=== PATIENT | female | born 1980 | race Caucasian/White ===

== ENCOUNTER → 2016-11-05 | Outpatient (CLI) | payer BC, OTHER ==
[~2016-11-05] MED LIST: ALPR0.25 PO; PHEN-556 PO
[2016-11-05 11:43] LABS: AUTOMATED NEUTROPHIL # 2.4 TH/MM3 (1.8-7.7); BASOPHIL % 0.5 % (0.0-2.0); EOSINOPHIL # 0.1 TH/MM3 (0-0.4); EOSINOPHIL % 1.1 % (0.0-4.0); HEMATOCRIT 40.8 % (35.0-46.0); HEMO FLAGS DIFF FINAL; LYMPHOCYTE # 1.9 TH/MM3 (1.0-4.8); MEAN CELL VOLUME 98.2 FL (80.0-100.0); MEAN CORPUSCULAR HEMOGLOBIN 32.3 PG (27.0-34.0); MEAN CORPUSCULAR HGB CONC 32.9 % (32.0-36.0); MONO % 8.4 % (0.0-8.0); PLATELET COUNT 372 TH/MM3 (150-450); RED BLOOD COUNT 4.16 MIL/MM3 (4.00-5.30); RED CELL DISTRIBUTION WIDTH 14.2 % (11.6-17.2); WHITE BLOOD COUNT 4.9 TH/MM3 (4.0-11.0)
[2016-11-05 12:10] LABS: BLOOD, URINE NEG (NEG); GLUCOSE,URINE NEG (NEG); KETONE, URINE NEG (NEG); NITRITE,URINE NEG (NEG); URINE COLOR LIGHT-YELLOW (YELLW/STRAW)
[2016-11-05 12:18] LABS: ANION GAP 8 MEQ/L (5-15); BICARBONATE 26.6 MEQ/L (21.0-32.0); BLOOD UREA NITROGEN 14 MG/DL (7-18); CHLORIDE 103 MEQ/L (98-107); GLOMERULAR FILTRATION RATE 90 ML/MIN (>89); GLUCOSE,FASTING 79 MG/DL (74-99); POTASSIUM 4.4 MEQ/L (3.5-5.1); SODIUM (NA) 138 MEQ/L (136-145)
[2016-11-05 12:27] LABS: BHCG SCREEN QUALITATIVE LESS THAN 1 MIU/ML (0-5)
== END ==
LOC: CPRE 10:14
PROVIDERS: ATTEND Obstetrics & Gynecology
DX: Z01.812 Encounter for preprocedural laboratory examination (principal); N87.9 Dysplasia of cervix uteri, unspecified; R32 Unspecified urinary incontinence; R10.2 Pelvic and perineal pain
CPT/HCPCS: 36415; 80048; 81001; 84703; 85025; 86850; 86900; 86901

== ENCOUNTER 2016-11-07 06:56 | Observation (INO) | payer BC, OTHER ==
--- NOTE | 2016-11-05 17:16 | MH ---
cc: KANIKA KIRBY DATE OF ADMISSION 11/07/2016 DATE OF 1980 CHIEF COMPLAINT Known [place] 3 and desire to have definitive therapy rather than cone biopsy. HISTORY OF THE PRESENT ILLNESS The patient is a 36-year-old white female 2, para 2 status post successful NovaSure endometrial ablation who recently had a Pap smear showing atypical glandular cells and cannot rule out high-grade squamous intraepithelial lesion. We have talked about cone biopsy, further diagnosis and uterine preservation but she desires no more children. She has already had a history of NovaSure. She has significant stress urinary incontinence and wants a transobturator tape and she does not want to have to come in for repeated Pap smears. She prefers LAVH over a LEEP and we can address the prolapse at the same time. SOCIAL HISTORY She does not smoke or drink or use illicit drugs. MEDICATIONS Her only medication is Phentermine for weight loss and occasional alprazolam for sleep. OB HISTORY She had two vaginal deliveries. PAST SURGICAL HISTORY She has had a history of tubal ligation. No other surgeries. She is mildly overweight but desires to lose weight. PHYSICAL EXAMINATION GENERAL: She is a fair white female with no acute distress. LUNGS: Her lungs were clear to auscultation and percussion. HEART: Rate and rhythm are regular. BREASTS: Exam was deferred at this time ABDOMEN: Mildly enlarged. She has no hepatosplenomegaly. No costovertebral angle tenderness. No inguinal adenopathy. PELVIC: Perineum was estrogenized. Vault is fairly well elevated. Cervix is multiparous. Has a slight descent. Uterus is small, mobile anterior. Ovaries are not felt. She has a mild cystocele and positive Q-tip test. RECTAL: Guaiac was negative. EXTREMITIES: Unremarkable. IMPRESSION A 36-year-old who has completed her family with a history of endometrial ablation, now with a history of mild descent, stress incontinence and a high-grade lesion. PLAN The plan is to proceed with LAVH and bilateral salpingectomy and transobturator tape leaving the ovaries in place. Risks, benefits, expectations and alternatives have all been described in detail. She has signed consents and she is scheduled for morning. Kanika Kirby MD PPC/KK /4:48 PM /4:55 PM
[~2016-11-07] VITALS: Ht 162.6 cm; Wt 78.2 kg
[~2016-11-07 06:56] MED LIST changes: +BUPIVACAINE/EPINEPHRINE 0.25% 50 ML VIAL ONE; +ESTROGENS CONJUGATED VAG CREA 15 APPL/30 GM TUBE ONE; +SODIUM CHLORIDE 0.9% 20 ML VIAL ONE; +VASOPRESSIN INJ 20 UNITS/ML VIAL ONE
[2016-11-07] MEDS ORDERED: METOPROLOL TARTRATE 25 MG TAB PO PRN (07:30)
[2016-11-07] MEDS ORDERED: ceFAZolin 2 GM PREMIX 50 ML IV SCH (07:30)
[2016-11-07] MEDS ORDERED: SODIUM CHLORID 0.9% 500 ML IV PRN (07:30)
[2016-11-07] MEDS ORDERED: INSULIN HUMAN REGULAR 1,000 UNITS/10 ML VIAL SQ PRN (07:30)
[2016-11-07] MEDS ORDERED: POVIDONE IODINE 5% (ANTISEPSIS KIT) 4 APPLICATIONS EACH NARE PRN (07:30)
[2016-11-07] MEDS ORDERED: CHLORHEXIDINE GLUCONATE 2 % 1 PACK (2 CLOTHS) TOPICAL PRN (07:30)
[2016-11-07] MEDS ORDERED: LACTATED RINGER'S 1000 ML IV PRN (07:30)
[2016-11-07 07:37] VITALS: BP 106/70; PULSE 76; RESP 16; TEMP 98.9; O2SAT 100
[2016-11-07] MEDS ORDERED: MIDAZOLAM HCL 2 MG/2 ML VIAL ONE (08:37)
[2016-11-07] MEDS ORDERED: FAMOTIDINE 20 MG/2 ML VIAL ONE (08:37)
[2016-11-07] MEDS ORDERED: DEXAMETHASONE SOD PHOS 4 MG/ML VIAL ONE (08:37)
[2016-11-07] MEDS ORDERED: APREPITANT 40 MG CAP ONE (08:37)
[2016-11-07] MEDS ORDERED: ACETAMINOPHEN 1000 MG/100 ML VIAL IV ONE (08:58)
[2016-11-07] MEDS ORDERED: fentaNYL CITRATE 250 MCG/5 ML AMP ONE (08:58)
[2016-11-07] MEDS ORDERED: BUPIVACAINE/EPINEPHRINE 0.25% PF 30 ML VIAL INFIL ONE (10:05)
[2016-11-07] MEDS ORDERED: PROPOFOL 200 MG/20 ML AMP IV ONE (12:00)
[2016-11-07] MEDS ORDERED: KETOROLAC TROMETHAMINE 60 MG/2 ML (IM) VIAL IM ONE (12:00)
[2016-11-07] MEDS ORDERED: NEOSTIGMINE 3 MG/3 ML SYR IV ONE (12:00)
[2016-11-07] MEDS ORDERED: ONDANSETRON HCL 4 MG/2 ML VIAL IV PUSH ONE (12:00)
[2016-11-07] MEDS ORDERED: LACTATED RINGER'S 1000 ML INJ 1,000 ML IV ONE (12:00)
[2016-11-07] MEDS ORDERED: ESTROGENS CONJUGATED VAG CREA 15 APPL/30 GM TUBE VAGINAL ONE (12:00)
[2016-11-07] MEDS ORDERED: DO NOT ADM ANY ANTICOAGULANT DRUGS PRN (12:03)
--- NOTE | 2016-11-07 12:14 | MP ---
cc: KANIKA KIRBY DATE OF SURGERY November 07, 2016 PREOPERATIVE DIAGNOSES 1. CIN3 of the cervix. 2. History of menometrorrhagia status post ablation. 3. Stress urinary incontinence with urethrovesical angle descent and mild cystocele. POSTOPERATIVE DIAGNOSES 1. CIN3 of the cervix. 2. History of menometrorrhagia status post ablation. 3. Stress urinary incontinence with urethrovesical angle descent and mild cystocele. PROCEDURE Laparoscopic-assisted vaginal hysterectomy, bilateral salpingectomy, enterocele obliteration, transobturator tape placement and cystoscopy. Ovaries were normal and left in place. SURGEON MD Teri [employer] student 2nd year. FINDINGS Examination under anesthesia revealed a patulous cervix with moderate descent. The uterus itself was a little bit globular and mildly enlarged. Previous evaluations had revealed CIN3 in the office. Upon entering the peritoneal cavity, the liver edge and gallbladder were normal. I did not actually see the appendix. The uterus was globular, mildly enlarged. She had evidence of a previous bilateral tubal ligation. She has normal premenopausal ovaries. No evidence of endometriosis, no significant scarring, no evidence of cancer, no significant adhesions. The laparoscopic portion of the case went uneventfully, removing both tubes and the uterus from their attachments and then the vaginal portion was unremarkable as the uterus was pulled through the vagina with the tubes. An enterocele was obliterated and the vaginal vault was closed. Reevaluation from above confirmed hemostasis and then we were back to the perineum where we opened up the vaginal mucosa, placed a Solyx transobturator tape. Cystoscopy revealed normal flow from both ureteral orifices, no evidence iatrogenic injury or intrinsic pathology, closed that and did not pack but placed Premarin in the vault. Estimated blood loss was about 150 cc. Sponge, instrument and needle count were correct. She tolerated the procedure well and she went to the recovery room in stable condition. PROCEDURE The patient was identified in Holding as Yuli Key, her permit was reviewed with her. She was taken by stretcher to the operating room, placed under general endotracheal anesthesia in the dorsal lithotomy position. A time-out was performed with all in attending. She was prepped and draped in the usual sterile fashion. Examination under anesthesia was performed and the Jean Baptiste was placed in a sterile fashion. Attention was directed to the abdomen where a 5-mm incision was made in the umbilicus and then CO2 was instilled directly into the peritoneal cavity, about 2.5 liters and systematic evaluation was performed for reassuring placement. Then a 5-mm and 12-mm were placed in the right and left quadrants respectively. All incisions were infiltrated first with Marcaine with epi. Then the right round ligament was grasped with a harmonic scalpel, transected and the anterior leaf of the broad ligament taken off the lower uterine segment. On the right side the fimbriated portion of the tube was dissected away and then taken out through the left port. Then successive pedicles were taken down to the level of the uterosacrals. This was repeated on the left side; there were some mild adhesions that were first taken down and the entire tube was intact on the uterine specimen, so was not pulled out the left port. Once we were down to the uterosacrals on both sides, attention was directed to the perineum. The in the acorn tenaculum was removed and then the cervix was placed on tension. It was infiltrated with Marcaine with epi and then circumcised with the Bovie on cutting. The anterior and posterior cul-de-sacs were entered safely and then curved Ildefonso clamps were used to clamp, cut and suture ligate the uterosacrals which were tagged. Successive pedicles were clamped, cut and suture ligated until the uterus was removed. Then an enterocele repair was done with #1 Vicryl in a running pursestring fashion. Then the uterosacrals were plicated and the vaginal vault was closed in a running interlocking fashion. Gloves were changed and attention was redirected to the abdomen. The abdomen was again filled with CO2 and then systematic evaluation of all pedicles was done. There was no evidence of any additional bleeding. All pedicles were secured. Irrigation was performed and then removed and then Cipriano placed. Then attention was redirected to the perineum and incision was made in the vaginal vault and the vaginal mucosa was dissected off the bladder laterally undermining underneath the pubic rami on either side. Then the Solyx tape was placed without difficulty. A moderate amount of bleeding was noted. Cystoscopy showed no iatrogenic injury, good flow from both ureteral orifices. The Jean Baptiste was then replaced and then the vaginal mucosa was closed. She then had her abdominal incisions closed with a fascial stitch in the left lower quadrant and then Monocryl on the remaining skin incisions. Again, sponge, needle and instrument counts were correct. She tolerated the procedure well and she went to the recovery room stable. MD THOMAS Hull/SSB /11:36 AM /11:48 AM
[2016-11-07] MEDS ORDERED: *morphine SULFATE 8 MG/ML PERIprocedure ONLY ONE ×2 (12:38→13:20)
[2016-11-07] MEDS ORDERED: LACTATED RINGER'S 1000 ML INJ 1,000 ML IV SCH (12:42)
[2016-11-07] MEDS ORDERED: oxyCODONE/ACETAMINOPHEN 5 MG/325 MG TAB PO PRN (12:45)
[2016-11-07] MEDS ORDERED: ONDANSETRON HCL 4 MG/2 ML VIAL IVP PRN (12:45)
[2016-11-07] MEDS ORDERED: diphenhydrAMINE HCL 25 MG CAP PO PRN (12:45)
[2016-11-07] MEDS ORDERED: LORazepam 0.5 MG TAB PO PRN (12:45)
[2016-11-07] MEDS ORDERED: SODIUM CHLORIDE 0.9% FLUSH 10 ML FLUSH IV FLUSH PRN (12:45)
[2016-11-07] MEDS ORDERED: oxyCODONE/ACETAMINOPHEN 5 MG/325 MG TAB ONE (14:04)
[2016-11-07] MEDS ORDERED: oxyCODONE/ACETAMINOPHEN 5 MG/325 MG TAB PO ONE (14:04)
[2016-11-07] MEDS ORDERED: PILL SPLITTER OTHER PRN (14:45)
[2016-11-07 16:00] VITALS: BP 102/62; PULSE 79; RESP 18; TEMP 96.7; O2SAT 99
[2016-11-07] MEDS: DOCUSATE SODIUM 100 MG CAP PO SCH (16:56)
[2016-11-07] MEDS: KETOROLAC TROMETHAMINE 30 MG/ML (IVP) VIAL IVP SCH ×2 (16:56→23:06)
[2016-11-07] MEDS: oxyCODONE/ACETAMINOPHEN 5 MG/325 MG TAB PO PRN ×2 (18:01→23:05)
--- NOTE | 2016-11-07 19:52 | HHI.PR ---
Subjective Remarks Doing well, pain is well controlled, eating well. some nausea Objective Vital Signs Vital Signs Date Time Temp Pulse Resp B/P Pulse Ox O2 Delivery O2 Flow Rate FiO2 11/07/16 16:00 96.7 79 18 102/62 99 11/07/16 14:00 78 16 101/51 99 Room Air 11/07/16 13:45 65 16 114/56 98 Room Air 11/07/16 13:30 67 16 96/56 98 Room Air 11/07/16 13:25 16 11/07/16 13:15 63 16 92/46 98 Room Air 11/07/16 13:00 16 11/07/16 13:00 70 16 101/61 100 Room Air 11/07/16 12:45 78 16 93/55 96 Room Air 11/07/16 12:30 64 16 100/59 98 Room Air 11/07/16 12:15 74 16 101/56 98 Room Air 11/07/16 12:00 98.1 62 16 108/55 98 Nasal Cannula 2 11/07/16 07:37 98.9 76 16 106/70 100 I/O 11/06/16 11/06/16 11/06/16 11/07/16 11/07/16 11/07/16 07:00 15:00 23:00 07:00 15:00 23:00 Intake Total 360 ml Balance 360 ml Intake Oral 360 ml # Voids 1 Objective Remarks Chest is clear, regular rate and rhythm. Abdomen is soft and non-distended. Incisions clean and dry. Ext no CCE. A/P Assessment and Plan NOS Doing well Home in am if passes voiding trial Pepper Williamson MD Nov 07, 2016 19:51
--- NOTE | 2016-11-07 19:53 | HHI.DCPOC ---
Discharge Care Plan Report Symptoms to Your Doctor -Temperature above 100.5 degrees -Redness, of incision or excessive or foul smelling drainage -Unusual pain or calf pain -Increased vaginal bleeding -Painful or difficulty urinating -Feelings of extreme sadness or anxiety after 2 weeks Goals to Promote Your Health * To prevent worsening of your condition and complications * To maintain your health at the optimal level Directions to Meet Your Goals Take your medications as prescribed Follow your dietary instruction Follow activity as directed Ensure plenty of rest for recovery Drink fluids for hydration Keep your appointments as scheduled Take your immunizations and boosters as scheduled If your symptoms worsen call your PCP, if no PCP go to Urgent Care Center or Emergency Room Smoking is Dangerous to Your Health. Avoid second hand smoke Call the 24-hour crisis hotline for domestic abuse at Pepper Williamson MD Nov 07, 2016 19:53
[2016-11-07 20:58] VITALS: BP 101/69; PULSE 76; RESP 20; TEMP 95.9; O2SAT 100
[2016-11-07] MEDS: SODIUM CHLORIDE 0.9% FLUSH 10 ML FLUSH IV FLUSH SCH (23:06)
[2016-11-08] VITALS: BP 99/53; PULSE 61; RESP 18; TEMP 96.6; O2SAT 99
[2016-11-08] MEDS: DOCUSATE SODIUM 100 MG CAP PO SCH (02:41)
[2016-11-08] MEDS: oxyCODONE/ACETAMINOPHEN 5 MG/325 MG TAB PO PRN ×3 (04:11→11:21)
[2016-11-08] MEDS: KETOROLAC TROMETHAMINE 30 MG/ML (IVP) VIAL IVP SCH ×2 (04:23→11:20)
[2016-11-08 05:46] LABS: AUTOMATED NEUTROPHIL # 5.2 TH/MM3 (1.8-7.7); BASOPHIL % 0.1 % (0.0-2.0); EOSINOPHIL % 0.2 % (0.0-4.0); HEMATOCRIT 35.1 % (35.0-46.0); HEMO FLAGS DIFF FINAL; LYMPH % 24.3 % (9.0-44.0); LYMPHOCYTE # 1.8 TH/MM3 (1.0-4.8); MEAN CELL VOLUME 97.8 FL (80.0-100.0); MEAN CORPUSCULAR HEMOGLOBIN 32.8 PG (27.0-34.0); MEAN CORPUSCULAR HGB CONC 33.6 % (32.0-36.0); MONO % 5.7 % (0.0-8.0); NEUT % 69.7 % (16.0-70.0); PLATELET COUNT 335 TH/MM3 (150-450); RED BLOOD COUNT 3.59 MIL/MM3 (4.00-5.30); WHITE BLOOD COUNT 7.4 TH/MM3 (4.0-11.0)
[2016-11-08 06:09] LABS: BICARBONATE 26.4 MEQ/L (21.0-32.0); POTASSIUM 3.4 MEQ/L (3.5-5.1)
[2016-11-08 08:00] VITALS: BP 98/55; PULSE 77; RESP 18; TEMP 97.8; O2SAT 100
[2016-11-08] MEDS: SODIUM CHLORIDE 0.9% FLUSH 10 ML FLUSH IV FLUSH SCH (08:36)
== END 2016-11-08 12:06 | disposition home or self-care (01) ==
LOC: HSDC 06:56 → N07B 14:47
PROVIDERS: ADMIT Obstetrics & Gynecology; ATTEND Obstetrics & Gynecology
PROC: 0UT7FZZ Resection of Bilateral Fallopian Tubes, Via Natural or Artificial Opening With Percutaneous Endoscopic Assistance (ICD-10-PCS; 2016-11-07)
PROC: 0UUF4JZ Supplement Cul-de-sac with Synthetic Substitute, Percutaneous Endoscopic Approach (ICD-10-PCS; 2016-11-07)
PROC: 0UT9FZZ Resection of Uterus, Via Natural or Artificial Opening With Percutaneous Endoscopic Assistance (ICD-10-PCS; principal; 2016-11-07 09:17)
PROC: 0UTC7ZZ Resection of Cervix, Via Natural or Artificial Opening (ICD-10-PCS; 2016-11-07 09:17)
DX: D06.0 Carcinoma in situ of endocervix (principal); N81.10 Cystocele, unspecified; N39.3 Stress incontinence (female) (male); N83.8 Other noninflammatory disorders of ovary, fallopian tube and broad ligament
CPT/HCPCS: 00840; 57268; 58552; 80048; 85025; 88309; 96374; 96375; 96376; C1771; G0378; J0131; J0690; J1100; J1885; J2250; J2270; J2405; J2710; J3010; J7120; J8501; 88307